=== PATIENT | female | born 1965 | race Caucasian/White ===

== ENCOUNTER → 2017-04-09 | Outpatient (CLI) | payer BC ==
[~2017-04-09] MED LIST: ADVINUNK; PRLSR20 PO
--- NOTE | 2017-04-09 10:19 | DIAGNOSTIC IMAGING REPORT ---
ABDOMEN COMPLETE (US) CLINICAL HISTORY: 51 years-old Female presenting with PANCREATIC LESION F/U. TECHNIQUE: Real-time grayscale and limited color Doppler ultrasound imaging of the abdomen was performed. COMPARISON: 11/10/2015. FINDINGS: Pancreas: Pancreatic body contains a 6 mm anechoic avascular cyst among unchanged. Liver: Moderately hyperechogenic parenchyma with partial obscuration of the right hemidiaphragm, likely indicating moderate steatosis. The liver measures 21.3 cm in maximal sagittal dimension. No sonographic evidence of hepatic mass. Main portal vein patent with normal directional flow. Biliary: No intrahepatic biliary ductal dilatation. Common bile duct measures up to 5 mm in diameter. Gallbladder: Focal isoechoic thickening of the gallbladder wall measuring 5 mm, which is nondependent. No evidence of gallstones, gallbladder wall thickening, gallbladder distention, or pericholecystic fluid or inflammatory change. Spleen: Contains a lobular minimally complex 2.9 cm cystic lesion, likely lymphangioma. The spleen measures 10.8 cm in length. Kidneys: Left kidney contains a simple cyst. Right kidney normal in appearance. Right kidney measures 11.2 cm, and left kidney measures 11.8 cm. No hydronephrosis. Vasculature: Visualized portions of the IVC and abdominal aorta normal. Ascites: None. IMPRESSION: 1. Hepatic steatosis. 2. 5 mm gallbladder polyp. 3. Stable 6 mm pancreatic cyst, which may represent a small side branch intraductal papillary mucinous neoplasm or mucinous cyst among other possible etiologies. Electronically signed by: Mitchell Damon M.D. 04/09/2017 10:18 AM Dictated Date/Time: 04/09/2017 10:14 AM
== END | disposition home or self-care (01) ==
LOC: C.ULTRBC 09:23
DX: K86.2 Cyst of pancreas (principal); K76.0 Fatty (change of) liver, not elsewhere classified; K82.4 Cholesterolosis of gallbladder